=== PATIENT | female | born 2005 | race Hispanic/Latino ===

== ENCOUNTER 2025-04-25 15:49 | Emergency (ER) | payer OTHER ==
[2025-04-25] MEDS ORDERED: diphenhydrAMINE 50 MG/ML VIAL ONE (17:54)
[2025-04-25] MEDS ORDERED: Acetaminophen/Codeine 30-300mg Tablet ONE (17:54)
[2025-04-25] MEDS ORDERED: Metoclopramide HCl 10 MG (2 mL) VIAL ONE (17:55)
== END 2025-04-25 19:51 | disposition home or self-care (01) ==
LOC: CSHERS 15:49
DX: G43.909 Migraine, unspecified, not intractable, without status migrainosus (principal)
CPT/HCPCS: 96365; 96366; 96375; J1200; J2765; J2919